=== PATIENT | female | born 1965 | race Caucasian/White ===

== ENCOUNTER → 2023-10-11 06:29 | Day surgery (SDC) | payer BC, SELFPAY | LOC: GI 06:29 | PROVIDERS: ATTENDING PHYSICIAN Internal Medicine; FAMILY PHYSICIAN Emergency Medicine | DX: Z12.11 Encounter for screening for malignant neoplasm of colon (principal); Z86.010 Personal history of colon polyps; K62.89 Other specified diseases of anus and rectum; D12.3 Benign neoplasm of transverse colon | CPT/HCPCS: 45380; 88305 ==

== ENCOUNTER → 2023-10-18 09:05 | Outpatient (REF) | payer BC, SELFPAY | LOC: HWRAD 09:05 | PROVIDERS: ATTENDING PHYSICIAN Family Medicine Sports Medicine; FAMILY PHYSICIAN Emergency Medicine | DX: M25.552 Pain in left hip (principal) | CPT/HCPCS: 73502 ==

== ENCOUNTER → 2024-04-16 14:02 | Outpatient (REF) | payer BC, SELFPAY | LOC: HWRAD 14:02 | PROVIDERS: ATTENDING PHYSICIAN Family Medicine Sports Medicine; FAMILY PHYSICIAN Emergency Medicine | DX: M25.561 Pain in right knee (principal); M25.562 Pain in left knee | CPT/HCPCS: 73562; 73565 ==

== ENCOUNTER → 2024-11-11 11:37 | Outpatient (REF) | payer BC, SELFPAY ==
[2024-11-11 15:53] LABS: CA 125 < 5.5 U/mL (0-35)
== END ==
LOC: HWLAB 11:37
PROVIDERS: ATTENDING PHYSICIAN Family Medicine Sports Medicine; FAMILY PHYSICIAN Emergency Medicine; REFERRING PHYSICIAN Obstetrics & Gynecology
DX: M25.561 Pain in right knee (principal); N83.209 Unspecified ovarian cyst, unspecified side
CPT/HCPCS: 36415; 73562; 86304

== ENCOUNTER → 2024-12-16 12:47 | Outpatient (REF) | payer BC, SELFPAY | LOC: HWRAD 12:47 | PROVIDERS: ATTENDING PHYSICIAN Obstetrics & Gynecology; FAMILY PHYSICIAN Emergency Medicine | DX: R93.89 Abnormal findings on diagnostic imaging of other specified body structures (principal) | CPT/HCPCS: 76830; 76856 ==

== ENCOUNTER → 2025-01-05 10:20 | Outpatient (REF) | payer BC, SELFPAY | LOC: HWRAD 10:20 | PROVIDERS: ATTENDING PHYSICIAN Obstetrics & Gynecology; FAMILY PHYSICIAN Emergency Medicine | DX: Z13.820 Encounter for screening for osteoporosis (principal); Z12.31 Encounter for screening mammogram for malignant neoplasm of breast | CPT/HCPCS: 77063; 77067; 77080 ==

== ENCOUNTER 2025-03-27 06:35 | Day surgery (SDC) | payer BC, SELFPAY ==
[2025-03-23 09:19] LABS: Hematocrit 41.5 % (37.0-47.0); Hemoglobin 13.8 g/dL (12.0-16.0); Mean Corp Hgb Conc. 33.3 g/dL (33.0-37.0); Mean Corpuscular Volume 89.8 fL (81.0-99.0); Nucleated Red Blood Cells % 0 %; Platelet Count 295 10^3/uL (130-400); Red Cell Dist. Width 13.5 % (11.5-14.5)
[2025-03-23 09:38] LABS: Blood Urea Nitrogen 17 mg/dl (7-17); Calcium 9.4 mg/dl (8.4-10.2); Carbon Dioxide 25 mmol/L (22-30); Chloride 108 mmol/L (98-107); Glucose 84 mg/dl (70-99); Potassium 4.9 mmol/L (3.5-5.1); Sodium 139 mmol/L (135-145); eGFR > 60.00
[2025-03-23 14:18] VITALS: BMI 26.5
[2025-03-27] VITALS (14 sets, daily range): BP systolic 104–143; BP diastolic 42–121; BMI 26.5
[2025-03-27] MEDS: TYLENOL 1000 MG PO (08:45)
[2025-03-27] MEDS: NORMOSOL-R/PLASMALYTE-A 1000 IV (08:45)
[2025-03-27] MEDS: NEURONTIN 300 MG PO (08:45)
[2025-03-27] MEDS: SUBLIMAZE 50 MCG IV (11:52)
[2025-03-27] MEDS: SUBLIMAZE 25 MCG IV (12:25)
[2025-03-27] MEDS: ZOFRAN 4 MG IV (12:38)
[2025-03-27] MEDS: TORADOL 15 MG IV (13:01)
[2025-03-27] MEDS: DILAUDID 0.25 MG IV (13:05)
[2025-03-27] MEDS: ROXICODONE 5 MG PO (13:49)
--- NOTE | 2025-03-27 15:39 | W.IMMPOSTOP ---
Surgical Immed Post Op Note
-
Primary Surgeon: Tessa Gao DO
Supervisor Computer Operations: PEDRO LUIS Packer
Pre-op Diagnosis: Persistent complex adnexal cystic masses, suspected endometriomas
Post-op Diagnosis: Persistent complex adnexal cystic masses consistent with endometriomas, pelvic endometriosis, abdominal adhesions
Procedure Performed: Robotic laparoscopic bilateral salpingo-oophorectomy, lysis of adhesions, fulguration of endometriosis
Anesthesia Type: General Endotracheal tube Dr. Cunningham
Specimen / Cultures: Bilateral fallopian tubes and ovaries containing endometriomas
Estimated Blood Loss: 5 mL
Complications: None
Urine output 300 mL clear yellow urine
Operative Findings: Uterus is normal in size. There is vascular congestion noted in the left parametrial blood vessels. Right ovary has a 2.5 cm endometrioma containing thick old blood content. Right ovary is adherent to the peritoneum in the
ovarian fossa. Left ovary with small cyst/possible endometriosis. 3 small endometriosis implants in the cul-de-sac approximately 5-8 mm each. Right abdominal filmy adhesions from a ascending colon to the abdominal wall laterally. Filmy adhesions
near sigmoid colon to left abdominal wall.
Counts correct x 2
== END 2025-03-27 15:15 | disposition home or self-care (01) ==
LOC: SDS 06:35
PROVIDERS: ATTENDING PHYSICIAN Obstetrics & Gynecology; FAMILY PHYSICIAN Emergency Medicine
DX: N80.103 Endometriosis of bilateral ovaries, unspecified depth (principal); N83.8 Other noninflammatory disorders of ovary, fallopian tube and broad ligament; N80.03 Adenomyosis of the uterus; K66.0 Peritoneal adhesions (postprocedural) (postinfection)
CPT/HCPCS: 58662; 58661; 36415; 80048; 85025; 86850; 86900; 86901; 88305